=== PATIENT | male | born 1995 | race American Indian/Alaskan Native ===

== ENCOUNTER 2019-01-21 22:39 | Emergency (ER) | payer BC ==
[2019-01-21 23:34] VITALS: BMI 23.7
[2019-01-21 23:37] VITALS: BP 155/76; PULSE 72; RESP 17; TEMP 97.7; O2SAT 99
[2019-01-21] MEDS ORDERED: TDAP Vaccine 0.5 mL Syr IM ONE (23:54)
[2019-01-21] MEDS ORDERED: Naproxen 550 mg Tab PO STA (23:54)
--- NOTE | 2019-01-21 23:56 | ED PDOC ---
Arrival/HPI - General Chief Complaint: Foreign Body Time Seen by Provider: 01/21/19 23:33 Historian: Patient - History of Present Illness Narrative History of Present Illness (Text): 01/22/19 00:29 23 yo M presents to the ER after he got a splinter under the nail of his R 3rd digit, when his hand got caught on a door [employer]. States that he removed a splinter immediately however feels that a small portion is still left in. Denies any numbness, decrease in ROM, other joint pain, any other complaints. Past Medical History - Infectious Disease Hx of Infectious Diseases: None - Psychiatric Hx Substance Use: No - Anesthesia Hx Anesthesia: No Family/Social History Family/Social History: No Known Family HX Smoking Status: Never Smoked Hx Alcohol Use: No Hx Substance Use: No Allergies/Home Meds Allergies/Adverse Reactions: Allergies No Known Allergies Allergy (Verified 01/21/19 23:33) Review of Systems - Review of Systems Constitutional: absent: Fatigue, Fevers Musculoskeletal: absent: Arthralgias, Joint Swelling Skin: absent: Rash, Skin Lesions Physical Exam Vital Signs Temp Pulse Resp BP Pulse Ox 01/21/19 23:34 97.7 F 72 17 155/76 H 99 Temperature: Afebrile Blood Pressure: Hypertensive Pulse: Regular Respiratory Rate: Normal Appearance: Positive for: Well-Appearing, Non-Toxic, Comfortable Pain Distress: Mild Mental Status: Positive for: Alert and Oriented X 3 - Systems Exam Upper Extremity: Present: Normal ROM, NORMAL PULSES, Tenderness (R 3rd digit : +possible FB noted under the lateral aspect of the nail, no d/c, no redness, no swelling. ), Neurovascularly Intact, Capillary Refill < 2s, Norm 2-Pt Discrimination. No: Swelling, Erythema, Temperature Abnormalties, Deformity Medical Decision Making ED Course and Treatment: 01/22/19 00:24 Attempted to remove suspected splint from the affected digit. No splinter noted under the nail, likely debris. Wound cleaned and irrigated with NS. Bacitracin and clean dressing applied. Given tdap IM, keflex po, naprosyn po. Advised to follow up with primary care physician or referral provided in 1-2 days without fail. Advised to take medication as prescribed. Instructed on proper wound care. Advised signs of infection. Return to the emergency room at any time for any new or worsening symptoms. Patient states he fully agrees with and understands discharge instructions. States that he agrees with the plan and disposition. Verbalized and repeated discharge instructions and plan. I have given the patient opportunity to ask any additional questions. - PA / MARKETING SERVICES MANAGER / Resident Statement MD/DO has reviewed & agrees with the documentation as recorded. Disposition/Present on Arrival - Present on Arrival Any Indicators Present on Arrival: No History of DVT/PE: No History of Uncontrolled Diabetes: No Urinary Catheter: No History of Decub. Ulcer: No History Surgical Site Infection Following: None - Disposition Have Diagnosis and Disposition been Completed?: Yes Diagnosis: Splinter of finger Disposition: HOME/ ROUTINE Disposition Time: 23:45 Patient Plan: Discharge Condition: STABLE Discharge Instructions (ExitCare): Wound Care (DC) Additional Instructions: Thank you for letting us take care of you today. You were treated for splinter to finger. The emergency medical care you received today was directed at your acute symptoms. If you were prescribed any medication, please fill it and take as directed. It may take several days for your symptoms to resolve. Return to the Emergency Department if your symptoms worsen, do not improve, or if you have any other problems. Please contact your doctor in 2 days for re-evaluation and follow up / or call one of the physicians/clinics you have been referred to that are listed on the Patient Visit Information form that is included in your discharge packet. Bring any paperwork you were given at discharge with you along with any medications you are taking to your follow up visit. Our treatment cannot replace ongoing medical care by a primary care provider (PCP) outside of the emergency department. Thank you for allowing the [facility] team to be part of your care today. Prescriptions: Cephalexin [Keflex] 500 mg PO Q6 #28 capsule Naproxen 500 mg PO BID PRN #20 tablet PRN Reason: Pain, Moderate (4-7) Forms: [facility] (Faroese), WORK NOTE
[2019-01-22] MEDS ORDERED: Bacitracin 500 Units/gm Oint Foilpak UD ONE (00:37)
== END 2019-01-22 00:42 | disposition home or self-care (01) ==
LOC: ED 22:39
DX: S60.452A Superficial foreign body of right middle finger, initial encounter (principal); W45.8XXA Other foreign body or object entering through skin, initial encounter; W23.0XXA Caught, crushed, jammed, or pinched between moving objects, initial encounter; Z23 Encounter for immunization